=== PATIENT | male | born 1985 | race Caucasian/White ===

== ENCOUNTER 2017-01-09 17:47 | Emergency (ER) | payer OTHER ==
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
[~2017-01-09 17:47] MED LIST: ACETAMINOPHEN PO; AMOXICILLIN PO; AMOXICILLIN500 M1 PO; AMOXICILLIN875 MG PO; AUGMENTIN PO; BACITRACIN1 GM OINT EXT; BACTRIM DS TABL1 TA2 PO; BACTROBAN22 GM; BACTROBAN22 GM TOP; BENADRYL IV; BENADRYL PO; E-MYCIN250 MG PO; ERYTHROMYCIN O3.5 G1 OD; FLEXERIL10 MG PO; IBUPROFEN800 MG PO; KEFLEX500 M1 PO; KEFLEX500 MG PO; KETOPROFEN PO; LORTAB 5/500 TA1 TA1 PO; MEDROL DOSEPAK4 MG PO; NO MEDICATIONS; NORCO1 TAB 10/3 DOB; PEN-VEE K PO; PERCOCET5/325 PO; PREDNISONE PAK; PREDNISONE PO; ROBAXIN500 MG PO; TYLENOL #3 PO; ULTRAM PO; VICODIN 5/1 TAB 5/50 PO; VICODIN 5/500 T1 TAB PO; VIGAMOX3 M2 OU; VOLTAREN75 MG PO
== END 2017-01-09 17:50 | disposition home or self-care (01) ==
LOC: CFTX 17:47
DX: S16.1XXA Strain of muscle, fascia and tendon at neck level, initial encounter (principal); S39.012A Strain of muscle, fascia and tendon of lower back, initial encounter; S20.212A Contusion of left front wall of thorax, initial encounter; S40.012A Contusion of left shoulder, initial encounter; F17.210 Nicotine dependence, cigarettes, uncomplicated; V43.62XA Car passenger injured in collision with other type car in traffic accident, initial encounter
CPT/HCPCS: 71020; 72040; 72100; 73030; 99284

== ENCOUNTER 2017-03-20 12:41 | Emergency (ER) | payer BC | END 2017-03-20 13:53 | disposition home or self-care (01) | LOC: SED 12:41 | DX: S05.02XA Injury of conjunctiva and corneal abrasion without foreign body, left eye, initial encounter (principal); F17.210 Nicotine dependence, cigarettes, uncomplicated; X58.XXXA Exposure to other specified factors, initial encounter; Y92.9 Unspecified place or not applicable | CPT/HCPCS: 99282; 99283 ==

== ENCOUNTER 2017-03-30 22:36 | Emergency (ER) | payer BC | END 2017-03-30 23:36 | disposition home or self-care (01) | LOC: SED 22:36 | DX: T15.02XA Foreign body in cornea, left eye, initial encounter (principal); F17.200 Nicotine dependence, unspecified, uncomplicated; X58.XXXA Exposure to other specified factors, initial encounter | CPT/HCPCS: 65220; 99283 ==